=== PATIENT | female | born 1990 | race Caucasian/White ===

== ENCOUNTER → 2023-11-21 | Day surgery (SDC) | payer OTHER ==
--- NOTE | 2023-11-21 14:22 | RAD REPORT ---
EXAM DESCRIPTION: US - BREAST/AXILLA, COMPLETE - 11/21/2023 10:56 am CLINICAL HISTORY: N63.41 COMPARISON: No comparisons TECHNIQUE: The patient presented for ultrasound-guided core biopsy. The patient underwent outside sonographic im aging in [place], which reportedly revealed a 2.2 cm mass in the area of palpable abnormality. Targeted right breast sonography was performed including the right periareolar region and lateral asp ect of the breast. FINDINGS: Meticulous scanning of the area of palpable abnormality in the right periareolar breast la teral to the nipple, reveals no discrete masses or abnormal shadowing. Bluebell of ligamentous stru ctures and dense breast tissue with some edge shadowing is noted in this region. Small anechoic cysti c spaces and areas of mild duct ectasia are present. These findings may contribute to the palpable ab normality. No other suspicious findings. IMPRESSION: No discrete mass in the right breast underlying the area of palpable concern, therefore a biopsy is not warranted at this time. A follow-up bilateral diagnostic mammogram is recommended for further evaluation of the palpable abnormality. BI-RADS: 0, incomplete. Need additional imaging evaluation. ResultCode: I
== END ==
LOC: DS 09:59
PROVIDERS: ATTEND Surgery
DX: N63.41 Unspecified lump in right breast, subareolar (principal); Z53.8 Procedure and treatment not carried out for other reasons
CPT/HCPCS: 76641